=== PATIENT | male | born 1950 | race Caucasian/White ===

== ENCOUNTER 2022-12-16 19:29 | Emergency (ER) | payer MEDICARE, OTHER, SELFPAY ==
[2022-12-16] VITALS (11 sets, daily range): BP systolic 149–163; BP diastolic 74–79; PULSE 64–103; RESP 17–20; TEMP 36.7; O2SAT 93–98; BMI 33.7
--- NOTE | 2022-12-16 20:17 | CRLHL7_ITS ---
For Patients: As a result of the Century Cures Act, medical imaging exams and procedure reports are released immediately into your electronic medical record. You may view this report before your referring provider. If you have questions, please contact your health care provider. INDICATION: Triple bypass surgery 1 month ago. Shortness of breath. COMPARISON: None available. TECHNIQUE: CT examination of the chest was performed with the uneventful intravenous administration of 95 cc of Isovue 370 while 1.5 mm thick axial sections were obtained from above the apices of the lungs through the mid renal level. Please note that all CT scans at this facility use dose modulation, iterative reconstruction, and/or weight-based dosing when appropriate to reduce radiation dose to as low as reasonably achievable. FINDINGS: : There is no sign of pulmonary embolism, with normal enhancement and branching of the pulmonary arteries. There is a small left subpulmonic pleural effusion and a tiny right pleural effusion. There is moderate dependent atelectasis of the posterior inferior left lower lobe adjacent to the effusion. There is mild patchy atelectasis in the posterior right lung base. The rest of the chest is clear. There is no sign of mediastinal or hilar mass or adenopathy. There are sternal wires from median sternotomy. There is mild LAD coronary calcification. Surgical clips are seen in the anterior heart consistent with CABG. The heart is top-normal in size, with no sign of a pericardial effusion. There is age appropriate appearance of the thoracic aorta and ascending great vessels. There is no sign of supraclavicular or axillary mass or adenopathy. The visualized superior liver, spleen, pancreas, kidneys, and adrenals are normal in appearance. The osseous structures are normal in appearance for the patient`s age. IMPRESSION: No sign of pulmonary embolism. Mild left subpulmonic effusion with moderate atelectasis of the posterior inferior left lower lobe adjacent to the effusion. Tiny right pleural effusion with mild patchy atelectasis of the posterior right lung base. Changes of median sternotomy and CABG with heart top normal in size. No pericardial effusion. Please note that all CT scans at this facility use dose modulation, iterative reconstruction, and/or weight-based dosing when appropriate to reduce radiation dose to as low as reasonably achievable. Dictated by Guille Lozano MD @ 12/16/2022 11:26:15 PM (Electronically Signed)
--- NOTE | 2022-12-16 20:19 | ED.SOB ---
HPI - SOB/Dyspnea General Chief Complaint: Post Op Complication Stated Complaint: Shortness of breath Time Seen by Provider: 12/16/22 19:51 History of Present Illness HPI Narrative: Patient is a 72-year-old gentleman who has history of coronary artery disease status post four-vessel bypass surgery 1 month ago who presents with shortness of breath. The shortness of breath began 6 hours ago and is associated with posterior chest tightness on the right. She completed cardiac rehab this morning without incident and was resting afterwards Isaac feeling somewhat fatigued. The pain has been 4/10 and sharp. He has no anterior chest pain no orthopnea no PND no worsen with activity. Patient has had no nausea no vomiting no blood in his stool no abdominal pain no fevers no chills. Patient called his surgeon Ashwin present to the emergency room for further evaluation. Initial EKG on my review shows a questionable flipped T-waves laterally no other acute abnormalities otherwise sinus rhythm. Related Data Allergies Allergy/AdvReac Type Severity Reaction Status Date / Time No Known Drug Allergies Allergy Verified 10/30/22 21:50 Review of Systems Status of ROS: Reports: 10 or more systems reviewed and unremarkable except as noted in History and below [facility] Social History Non-prescribed substance use: denies use Exam Narrative: Exam Narrative: EXAM GENERAL: Patient appears comfortable and well. EYES: No scleral icterus. LYMPH: No supraclavicular or cervical lymphadenopathy. SKIN: Visible skin seen during exam normal or with benign process only. EXT: No dependent lower extremity pedal edema. HEART: Regular rate and rhythm with no murmurs, rubs, or gallops. LUNGS: Clear to auscultation bilaterally with no crackles or wheezes. ABD: Soft, non tender, non distended. PSYCH: Good eye contact, speech is not pressured. Const: Vital Signs, click to edit/add: Vital Signs - 24 hr 12/16/22 19:44 Temperature 98.1 F Pulse Rate [Pulse Oximeter] 103 H Respiratory Rate 18 Blood Pressure [Ri ght Upper Arm] 163/79 H Pulse Oximetry 94 Oxygen Delivery Me thod Room Air Course Course Hospital Course: Patient seen examined. EKG reviewed as above. CT of the chest PE protocol troponin CBC CMP BNP ordered. Vital Signs Vital signs: Initial Vital Signs Temperature 98.1 F 12/16/22 19:44 Temperature Source Temporal Artery Scan 12/16/22 19:44 Pulse Rate 103 H 12/16/22 19:44 Respiratory Rate 18 12/16/22 19:44 Blood Pressure 163/79 H 12/16/22 19:44 Blood Pressure Mean 107 H 12/16/22 19:44 Pulse Oximetry 94 12/16/22 19:44 Oxygen Delivery Method Room Air 12/16/22 19:44 Vital Signs Temperature 98.1 F 12/16/22 19:44 Pulse Rate 103 H 12/16/22 19:44 Respiratory Rate 18 12/16/22 19:44 Blood Pressure 163/79 H 12/16/22 19:44 Pulse Oximetry 94 12/16/22 19:44 Oxygen Delivery Method Room Air 12/16/22 19:44 Temperature 98.1 F 12/16/22 19:44 Pulse Rate 103 H 12/16/22 19:44 Respiratory Rate 18 12/16/22 19:44 Blood Pressure 163/79 H 12/16/22 19:44 Pulse Oximetry 94 12/16/22 19:44 Oxygen Delivery Method Room Air 12/16/22 19:44 MDM - SOB/Dyspnea MDM Narrative Medical decision making narrative: Patient presents 1 month after a 4 vessel CABG. He is short of breath with pain in the right side of his chest. I did do a CT of his chest PE protocol no pulmonary embolism or pneumothorax. He does have some small pleural effusions which is to be expected. No other acute abnormalities. EKG shows no acute changes. He does have a negative troponin and his symptoms present for the last 6 hours. ProBNP is reasonable electrolytes are normal. This time reassurance is adjusted with continued symptomatic care and outpatient follow-up. Differential Diagnosis Differential diagnosis: Likely acute exacerbation of chronic obstructive airways disease, congestive heart failure, community acquired pneumonia, asthma with exacerbation and pulmonary embolism Lab Data Labs: Lab Results 12/16/22 Range/Units 20:52 WBC 9.37 (4.50-11.00) K/uL RBC 3.89 L (4.30-5.90) m/uL Hgb 12.4 L (13.5-17.5) gm/dL Hct 37.1 (37.0-53.0) % MCV 95 (80-100) fL MCH 32 (26-34) pg MCHC 33 (32-36) gm/dL RDW Coeff of Hayder 12.6 (11.5-15.5) % Plt Count 266 (140-440) K/uL Neut % (Auto) 70.9 (42.0-72.0) % Lymph % (Auto) 14.4 L (20-44) % [place] % (Auto) 7.6 (0.0-11.0) % Eos % (Auto) 6.6 (0.0-7.0) % Baso % (Auto) 0.4 (0.0-3.0) % Neut # (Auto) 6.64 (1.7-7.0) K/uL Lymph # (Auto) 1.30 (0.90-2.90) K/uL [place] # (Auto) 0.70 (0.00-0.90) K/UL Eos # (Auto) 0.62 H (0.00-0.50) K/uL Baso # (Auto) 0.04 (0.00-0.30) K/uL Abs Immat Gran (auto) 0.01 (0.00-0.30) K/uL Imm/Tot Granulo (auto) 0.1 % Sodium 134 L (135-149) mmol/L Potassium 3.9 (3.6-5.1) mmol/L Chloride 100 (96-114) mmol/L Carbon Dioxide 25 (20-32) mmol/L BUN 21 (7-30) mg/dL Creatinine 0.9 (0.5-1.5) mg/dL Estimated Creat Clear 67.93 Estimated GFR 90 ml/min Glucose 108 (60-115) mg/dL Calcium 8.9 (8.4-10.6) mg/dL Total Bilirubin 0.9 (0.1-1.5) mg/dL AST 26 (12-35) U/L ALT 33 (4-50) U/L Alkaline Phosphatase 75 (40-150) U/L Troponin I < 0.01 L (0.01-0.04) ng/mL NT-Pro-B Natriuret Pep 754 pg/mL Total Protein 6.9 (6.0-8.3) g/dL Albumin 4.0 (3.3-5.0) g/dL Discharge Plan Discharge Clinical Impression: Acute chest wall pain Patient Disposition: Home, Self-Care Condition: Stable Instructions: Chest Pain (ED) Additional Instructions: Continue current medications Continue cardiac rehab With your doctor as discussed Activity Level: No Restrictions Discharge Diet: Regular Follow Up/Referrals: HUMBERTO ROSS DO [Primary Care Provider] - Stand Alone Forms: [employer] Info Instructions
[2022-12-16 20:59] LABS: Basophils Absolute Auto 0.04 K/uL (0.00-0.30); Basophils Percent Auto 0.4 % (0.0-3.0); Eosinophils Absolute Auto 0.62 K/uL (0.00-0.50); Eosinophils Percent Auto 6.6 % (0.0-7.0); Hematocrit 37.1 % (37.0-53.0); Hemoglobin* 12.4 gm/dL (13.5-17.5); Immature Granulocytes Abs Auto 0.01 K/uL (0.00-0.30); Immature Granulocytes Pct Auto 0.1 %; Lymphocytes Percent Auto 14.4 % (20-44); Mean Corpuscular HGB Conc 33 gm/dL (32-36); Mean Corpuscular Hemoglobin 32 pg (26-34); Mean Corpuscular Volume 95 fL (80-100); Monocytes Percent Auto 7.6 % (0.0-11.0); Neutrophils Absolute Auto 6.64 K/uL (1.7-7.0); Neutrophils Percent Auto 70.9 % (42.0-72.0); Platelet Count* 266 K/uL (140-440); RDW Coefficient of Variation % 12.6 % (11.5-15.5); Red Blood Count 3.89 m/uL (4.30-5.90); White Blood Count* 9.37 K/uL (4.50-11.00)
[2022-12-16 21:11] LABS: Slide Review Reflex No
[2022-12-16 21:49] LABS: Chloride* 100 mmol/L (96-114); Sodium* 134 mmol/L (135-149)
[2022-12-16 21:50] LABS: Potassium* 3.9 mmol/L (3.6-5.1)
[2022-12-16 21:52] LABS: Alkaline Phosphatase* 75 U/L (40-150); Aspartate Amino Transferase* 26 U/L (12-35); Bilirubin Total* 0.9 mg/dL (0.1-1.5); Blood Urea Nitrogen* 21 mg/dL (7-30); Carbon Dioxide* 25 mmol/L (20-32); Creatinine* 0.9 mg/dL (0.5-1.5); Est. Creatinine Clearance* 67.93; Estimated Glomerular Filt Rate 90 ml/min; Glucose* 108 mg/dL (60-115); Total Protein* 6.9 g/dL (6.0-8.3)
[2022-12-16 21:53] LABS: Alanine Aminotransferase* 33 U/L (4-50); Calcium* 8.9 mg/dL (8.4-10.6)
[2022-12-16 22:12] LABS: NT Pro B Type NatriureticPept* 754 pg/mL; Troponin I* < 0.01 ng/mL (0.01-0.04)
== END 2022-12-16 23:56 | disposition home or self-care (01) ==
PROVIDERS: Emergency Provider Internal Medicine; PCP Student in an Organized Health Care Education/Training Program
DX: R07.89 Other chest pain (principal)
CPT/HCPCS: 36415; 71260; 80053; 83880; 84484; 85025; 93005; 99283; 99284; 99285; Q9967